=== PATIENT | male | born 1965 | race African-American/Black ===

== ENCOUNTER → 2016-12-28 | Outpatient (CLI) | payer BC ==
--- NOTE | 2016-12-28 11:48 | RADRPT ---
PROCEDURE: XR Knees. CLINICAL INDICATION: Bilateral knee pain. TECHNIQUE: Total of eight views. Weightbearing frontal, oblique, and lateral views of the both kn ees. Patellar views of both knees. COMPARISON: No prior study is available for comparison. FINDINGS: On the right side, there are is a screw in the distal femur and a screw in the proximal tibia relate d to the anterior cruciate ligament repair. There are degenerative changes with osteophytes arising from all 3 joint compartment margins. There is patellofemoral joint compartment narrowing. There is no deformity. On the left side, there is a kush in the femur with 2 locking screws distally in the femur. There ar e degenerative changes with osteophytes arising from all 3 joint compartment margins. There is no j oint space narrowing or deformity. The soft tissues are unremarkable. There is no lytic or blastic lesion. IMPRESSION: 1. On the right, previous ACL repair. Moderate degenerative changes. 2. On the left, previous open reduction internal fixation of the femur. Mild degenerative changes. RPTAT: QQ .Mikie Barton MD, Date Time Electronically viewed and signed by .Mikie Barton MD, on 12/28/2016 11:48 .R/
== END | disposition home or self-care (01) ==
LOC: HKI 08:53
PROVIDERS: ATTEND Orthopaedic Surgery
DX: M25.561 Pain in right knee (principal); M17.11 Unilateral primary osteoarthritis, right knee
CPT/HCPCS: 73564; Z7500; G0463

== ENCOUNTER → 2017-01-25 | Outpatient (CLI) | payer BC ==
--- NOTE | 2017-01-25 16:42 | RADRPT ---
PROCEDURE: Limited x-ray of both lower extremities. CLINICAL INDICATION: Bilateral leg pain. TECHNIQUE: Single frontal view of both lower extremities was obtained from the hips to the calves. COMPARISON: Bilateral knee radiographs dated 12/28/2016. FINDINGS: There are mild degenerative changes of the hips with osteophytes noted. There is a right knee anter ior cruciate ligament repair with 2 screws noted. There is a kush in the shaft of the left femur with 2 locking screws proximally and 2 locking screws distally. There is an old healed fracture of the mid to upper shaft of the left femur. There are moderate degenerative changes of both knees with os teophytes and joint space narrowing. IMPRESSION: 1. Prior right knee surgery and left femur surgery. 2. Mild degenerative changes of the hips. 3. Moderate degenerative changes of both knees. RPTAT: QQ .Mikie Barton MD, MD Date Time Electronically viewed and signed by .Mikie Barton MD, on 01/25/2017 16:42 .R/
== END | disposition home or self-care (01) ==
LOC: HKI 09:45
PROVIDERS: ATTEND Orthopaedic Surgery
DX: M25.561 Pain in right knee (principal); M17.11 Unilateral primary osteoarthritis, right knee
CPT/HCPCS: 77073; Z7500; G0463

== ENCOUNTER 2017-02-02 07:24 | Inpatient (IN) | payer BC ==
[~2017-02-02] VITALS: Ht 165.1 cm; Wt 71.0 kg
[2017-02-02] VITALS (24 sets, daily range): BP systolic 111–141; BP diastolic 72–100; PULSE 72–100; RESP 12–26; Ht 165.1 cm; Wt 71.0 kg
--- NOTE | 2017-02-02 06:54 | PREOPHP ---
DATE OF ADMISSION: 02/02/2017 A 51-year-old male will have surgery right knee osteoarthritis total knee arthropla sty on the right side. The patient is 51-year-old man in no acute distress to have a right total hi p arthroplasty. Total right knee arthroplasty with Dr. Patrick Dominguez. Surgery date is 02/02/2017. The patient is 51 years old. Vital signs: Height 66 inches, weight 160 pounds, BMI 25, pulse 82, blo od pressure 126/82, temperature 98.7, pulse 82, respirations 20. The patient is 51-year-old male in no acute distress. He will undergo right total knee arthroplasty. General appearance: Well-nourished and well-developed man in good health, no abuse, no neglect evide nce. Normocephalic. No lesions. Atraumatic. Eyes, pupils PERRL. Conjunctive normal. Sclerae cl ear. Vision normal. Ear canals are clear. TMs normal and intact. Hearing grossly normal. Nose p assages clear. Mucosa pink. No lesions. Teeth grossly appear grossly normal. No cavities. NECK: Normal. no masses, thyroid not enlarged. pupils equal and symmetric. CHEST: Lungs clear and symmetric. HEART: Normal. No organic murmur. Regular rhythm. EKG normal. IMPRESSION: Normal. No mass. Lungs are clear to auscultation bilaterally. ABDOMEN: Soft. No mass. Liver and spleen appear normal. GENITALIA: Grossly normal. EXAM: Normal. RECTAL EXAMINATION: Normal. Femoral pulse normal. EXTREMITIES: The patient had an old fracture, left radius fracture, nondisplaced last year about 2015. Upper extremities normal. Lower extremity both knee osteoarthritis, severe, right knee osteoarthritis. Left knee, old fracture of the left radius and healing well. Low back pain. He co mplained of back pain. SKIN: Appears normal and clear. No significant lesions. PSYCHIATRIC: Normal. No complaints of anxiety. No sensory deficits. Examination is grossly normal except for fracture of the left radius and the patient has right and l eft knee osteoarthritis. REVIEW OF SYSTEMS: Everything appeared to be normal except for left radius fracture, old. Osteoarth ritis. MEDICATION: The patient is on Soma 350 mg p.o. t.i.d. and hydrocodone 10/325 mg p.o. t.i.d. The patient is having surgery with Dr. Patrick Dominguez on 02/02/2017. DICTATED BY: MD SHERRI Oden MD DICTATED PRE-OPERATIVE HISTORY AND PHYSICAL FOR PATRICK DOMINGUEZ MD. Dictated By: PATRICK DOMINGUEZ MD EZ/NTS Conf#: [id number] DID#: [id number]
[~2017-02-02 07:24] MED LIST: LIDOCAINE 2% (SDV) 5 ML INJ ONE
[2017-02-02] MEDS ORDERED: CEFAZOLIN 2GM/50 ML (PMX) 50 ML X1 BEFORE INCISION IVPB ONE (08:00)
[2017-02-02] MEDS ORDERED: CELECOXIB 400 MG PO X1 DOSE PO ONE (08:00)
[2017-02-02] MEDS ORDERED: TRANEXAMIC ACID in SOD CHLORIDE 0.9% 100 ML ON CALL TO OR IV SCH (08:00)
[2017-02-02] MEDS ORDERED: BUPIVACAINE LIPOSOME/PF 266 MG/20 ML VIAL INFIL ONE (08:00)
[2017-02-02] MEDS ORDERED: PREGABALIN 300 MG PO X1 PO ONE (08:00)
[2017-02-02] MEDS ORDERED: PAIN COCKTAIL-CEFUROXIME IRR ONE ×7 (08:00)
[2017-02-02] MEDS ORDERED: traMADOL 50 MG TAB X 1 DOSE PO ONE (08:00)
[2017-02-02] MEDS ORDERED: oxyCODONE (CR) 10 MG TAB [oxyCONTIN] X1 DOSE PO ONE (08:00)
[2017-02-02] MEDS ORDERED: OXYC5CAP17 PO (08:03)
[2017-02-02] MEDS ORDERED: CARI350T29 PO (08:03)
[2017-02-02] MEDS ORDERED: GLYCOPYRROLATE 0.4 MG INJ ONE (09:06)
[2017-02-02] MEDS ORDERED: ONDANSETRON 4 MG INJ ONE (09:06)
[2017-02-02] MEDS ORDERED: FENTAnyl 50 MCG/ML VIAL ONE ×2 (09:06→11:15)
[2017-02-02] MEDS ORDERED: ROCURONIUM 50 MG INJ ONE (09:06)
[2017-02-02] MEDS ORDERED: DEXAMETHASONE 4 MG/ML 1 ML INJ ONE (09:06)
[2017-02-02] MEDS ORDERED: CEFAZOLIN 1 GM INJ ONE (09:06)
[2017-02-02] MEDS ORDERED: ETOMIDATE 20 MG INJ ONE (09:06)
[2017-02-02] MEDS ORDERED: NEOSTIGMINE 3 MG/3 ML SYRINGE ONE (09:06)
[2017-02-02] MEDS ORDERED: MIDAZOLAM 1 MG/ML 2 ML INJ ONE (09:06)
[2017-02-02] MEDS ORDERED: PROPOFOL 100 ML ONE (09:07)
[2017-02-02] MEDS ORDERED: VANCOMYCIN 1 GM INJ ONE (09:28)
[2017-02-02] MEDS ORDERED: POLYMYXIN B 500000 UNIT INJ ONE (09:28)
[2017-02-02] MEDS ORDERED: BACITRACIN 50000 UNITS INJ ONE (09:30)
--- NOTE | 2017-02-02 09:37 | HPN ---
Date/Time of Note Date/Time of Note DATE: 02/02/17 TIME: 09:36 Interval H&P Admission Note Pt. seen H&P reviewed: No system changes No change from H&P on 01/30/17 by BRAVO Mckeon MD February 02, 2017 09:37
[2017-02-02] MEDS ORDERED: TRANEXAMIC ACID in SOD CHLORIDE 0.9% 100 ML FOR INTRAOP IVPB SCH (10:00)
[2017-02-02] MEDS ORDERED: MIDAZOLAM 1 MG/ML 2 ML INJ IV PRN (11:00)
[2017-02-02] MEDS ORDERED: MEPERIDINE 25 MG INJ IV PRN (11:00)
[2017-02-02] MEDS ORDERED: EPHEDrine SULFATE 50 MG/5 ML SYG IV PRN (11:00)
[2017-02-02] MEDS ORDERED: ONDANSETRON 4 MG INJ IV PRN ×2 (11:00→13:00)
[2017-02-02] MEDS ORDERED: hydrALAzine 20 MG INJ IV PRN (11:00)
[2017-02-02] MEDS ORDERED: LABETALOL HCL 20MG INJ IV PRN (11:00)
[2017-02-02] MEDS ORDERED: EXPAREL NOTE (BUPIVICAINE LIPOSOMAL) XX SCH (11:00)
[2017-02-02] MEDS ORDERED: DIPHENHYDRAMINE 50 MG INJ IV PRN (11:00)
[2017-02-02] MEDS ORDERED: TRIMETHOBENZAMIDE 100 MG/ML VIAL IM PRN (11:00)
[2017-02-02] MEDS ORDERED: FENTAnyl 50 MCG/ML VIAL IV PRN ×3 (11:00)
[2017-02-02] MEDS ORDERED: HYDROmorphONE (0.2 MG/ML) 10ML SYG IV PRN ×3 (11:00)
[2017-02-02] MEDS: traMADol 50 MG TAB PO SCH ×3 (12:00→23:07)
--- NOTE | 2017-02-02 12:50 | OPR ---
Date/Time of Note Date/Time of Note DATE: 02/02/17 TIME: 12:48 Operative Report Free Text/Dictation Dictation # [id number] Procedure Date: February 02, 2017 Preoperative Diagnosis Right Knee OA Postoperative Diagnosis Same Operation Performed Right TKA Surgeon: BRAVO DOMINGUEZ MD care team assistant: SANTIAGO MCKINLEY PA-C Anesthesia: general, spinal Anesthesiologist: Gaudencio Courtney M.D. Tourniquet Time: 67 minutes Estimated Blood Loss: 50 - 100 ml's Specimens Bone and soft tissue Tubes/Drains Hemovac x 1 Complications: None Pt Condition Post Procedure: stable Disposition: PACU BRAVO DOMINGUEZ MD February 02, 2017 12:50
--- NOTE | 2017-02-02 12:52 | PN ---
Date/Time of Note Date/Time of Note DATE: 02/02/17 TIME: 12:50 Assessment/Plan Assessment/Plan Assessment/Plan Stable in PACU, s/p right TKA continue antibiotics -pain meds as needed -ASA/SCDs for DVT prophylaxis -OOB with PT -check AM labs -monitor drain -d/c kurtz in AM XR of the right knee shows good alignement with no fracture or dislocations identified Subjective 24 Hr Interval Summary Stable in PACU. Denies pain. Moving all extremities. Exam/Review of Systems Vital Signs Vitals Vital Signs Date Time Temp Pulse Resp B/P Pulse Ox O2 Delivery O2 Flow Rate FiO2 02/02/17 13:21 86 16 131/88 96 Room Air 02/02/17 12:39 98.0 Intake and Output 02/01/17 02/01/17 02/02/17 15:00 23:00 07:00 Intake Total 2600 ml Balance 2600 ml Exam Free Text/Dictation Hemovac: minimal Dressing dry Incision clean, dry, and intact without redness or drainage Thigh soft 5/ Quadriceps, Tibialis Anterior, EHL, Gastroc, Soleus, Peroneals Normal sensation Palpable DT/PT, CR <2 sec No distal edema Results Result Diagram: 02/02/17 1327 SANTIAGO MCKINLEY PA-C February 02, 2017 12:52
[2017-02-02] MEDS ORDERED: ASPIRIN (EC) 325 MG TAB PO ONE (13:00)
[2017-02-02] MEDS ORDERED: MAGNESIUM HYDROXIDE 30ML CUP PO PRN (13:00)
[2017-02-02] MEDS ORDERED: DIPHENHYDRAMINE 25 MG CAP PO PRN (13:00)
[2017-02-02] MEDS ORDERED: NA PHOSPHATE/BIPHOS 133 ML ENEMA PR PRN (13:00)
[2017-02-02] MEDS ORDERED: BISACODYL 10 MG SUPP PR PRN (13:00)
[2017-02-02] MEDS ORDERED: NACL 0.9% 3 ML SYG IV SCH (13:00)
--- NOTE | 2017-02-02 13:04 | OPR ---
DATE OF OPERATION: 02/02/2017 PREOPERATIVE DIAGNOSIS: Right knee osteoarthritis. POSTOPERATIVE DIAGNOSIS: Right knee osteoarthritis. OPERATION PERFORMED: Right total knee arthroplasty. SURGEON: Bravo Baeza MD JAVA DEVELOPER ARCHITECT: AROLDO Lopez COMPONENTS USED: DePuy Attune size 6 femoral component, size 6 tibial baseplate, 5 mm polyethylene insert, 38 patellar button. ANESTHESIA: Spinal plus general endotracheal intubation plus periarticular injection. ANESTHESIOLOGIST: Dr. Courtney. TOURNIQUET TIME: 67 minutes. ESTIMATED BLOOD LOSS: 50 mL. INTRAVENOUS FLUIDS: Two liters of crystalloid. SPECIMENS: Bone and soft tissue. DRAINS: Hemovac x1. COMPLICATIONS: None. INDICATIONS: The patient is a 51-year-old gentleman who has had progressive worsening pain in the r ight knee. He had a previous ACL reconstruction. He has gone on to develop severe osteoarthritis. He has tried a multitude of nonsurgical means of treatment to address his pain including activity m odifications, pain medications, intra-articular injections and ambulatory assist devices. Despite t hese measures, he has had worsening pain and I felt he would benefit from a total knee arthroplasty. The risks, benefits, and alternatives of the procedure were explained in detail to the patient. I e xplained the risks of the surgery to include but not be limited to, bleeding and possible need for b lood transfusion; infection; pain; stiffness; neurovascular injury with possible numbness, weakness, and/or paralysis anywhere from the knee down to the toes; fracture; instability; dislocation; wear and/or loosening of the prosthesis and possible need for future revision; blood clots; pulmonary emb olism; and anesthetic complications such as heart attack, stroke, GI bleed, pneumonia, and/or . Ample time was allowed for the patient to ask questions, all of which were addressed and answered. The patient understood the risks involved and wished to proceed. Informed consent was signed prior to the procedure. PROCEDURE: The patient's right knee was initialed with a marking pen in the preoperative area to id entify the correct operative site. The patient was brought to the operating room and transferred fr the [facility] to the operating table where a spinal anesthetic was administered. The patie nt was then anesthetized and intubated. A Coffman catheter was placed. A timeout was performed to co nfirm that the right leg was the correct operative site. The patient was given 2 g of Ancef within one hour prior to the procedure. A tourniquet was placed on the operative proximal thigh. The oper ative knee and lower extremity were prepped and draped in the usual sterile fashion. The operative lower extremity was elevated and exsanguinated with an Esmarch tourniquet. The proximal thigh tourn iquet was inflated to 300 mmHg. The knee was flexed. A midline incision was made and carried down through the subcutaneous tissue a nd fat with sharp dissection. Limited medial and lateral flaps were raised. A median parapatellar arthrotomy approach was performed. Synovial fluid was normal in color and consistency. The patella was everted and the knee flexed. There were severe tricompartmental osteoarthritic changes noted. A medial release was performed at the joint line to the midcoronal plane. The ACL and PCL and remnan ts of the menisci were excised. The stepped drill was used to open up the femoral canal which was i rrigated and sucked dry. The intramedullary guide kush was passed up the femur, and the distal cutti ng block was pinned into place for a 6 degree valgus cut, taking 10 mm of bone off distally. The osc illating saw was used to make the cut. The tibia was subluxed anteriorly. The tibial cutoff jig was placed over the center of the talus di stally and over the junction of the medial and middle third of the tibial tubercle proximally. The g uide was pinned into place and the oscillating saw was used to make the cut. The tibia was sized. The extension gap was checked and accommodated a 5 mm spacer block with the knee in full extension. There was no varus or valgus instability. At this point, the femur was sized with the posterior referencing guide. Two holes were drilled in 3 degrees of external rotation. The two holes were in line with the transepicondylar axis, perpendi cular to Strafford's line, and in line with the tibial cutoff jig brought up with the knee flexed 90 degrees and tensed with 2 lamina spreaders, suggesting the femoral rotation was correct. The four- in-one cutting block was pinned into place. The anterior and posterior cuts and chamfer cuts were m carmelita with the oscillating saw. The flexion gap was checked and accommodated the 5 mm spacer block at 90 degrees. There was no varus or valgus instability, suggesting the flexion and extension gaps we re now equal. The central box was cut out on the femur. The tibia was drilled and punched in proper rotation. Tri al components were placed into position with a trial insert. The patella was cut from 25 mm down to 15 mm and sized. Three holes were drilled and the trial button placed in position. With all the t rials now in place, the knee was taken through range of motion and came to full extension as evidenc ed by the fact that with the foot on my abdomen and axial loading, there was no tendency for the kne e to flex. The knee was able to be flexed to 125 degrees with good patellar tracking with no latera l tilt or subluxation. At this point, I was satisfied with the overall range of motion, stability, and patellar tracking. The trials were removed. The real components were opened. Two bags of cement were mixed, one with and one without premixed antibiotic. The knee was irrigated with antibiotic saline and sucked dry. Once the cement was in a doughy stage, the real components were cemented into place. The knee was held in full extension, and the patellar component was held with a patellar clamp. All excess cemen t was removed with curettes. As the cement was hardening, the synovial/capsular layer was infiltrat ed with a mixture of 150 mg of 0.5% Bupivacaine, 8 mg of Duramorph, 300 mcg of epinephrine, 30 mg of Toradol, 100 mcg of clonidine, 750 mg of cefuroxime and 86 mL of normal saline, followed by an inje ction of 266 mg of liposomal Bupivacaine. A Hemovac drain was placed in the deep portion of the wound and brought out the anterolateral thigh. Once the cement was completely hardened, the trial liner was removed, and the real insert was open ed. The tourniquet was let down, and there was good hemostasis. The knee was then irrigated with a mixture of betadine/saline and then antibiotic saline with pulsatile lavage. The real insert was impacted into the tibia and reduced onto to the femur. The arthrotomy was closed with a few interrupted #1 Ethibond in a auaamj-mw-[id number] fashion, and then closed in a watertight fashion with a running #2 Stratafix suture. Knee flexion was checked against gravity and came to 125 degrees. The subcutaneous layer was irrigated and closed with 2-0 Statafix , and then 3-0 Vicryl and then nick on the skin. The wound was covered with an occlusive dressin g, and secured with cast padding and a bias dressing. The drain was secured with 3-0 nylon. The sponge and needle counts were correct at the end of the case. The patient was then awakened, ex tubated, and taken to the recovery room in stable condition. Dictated By: BRAVO METZ/NTS Conf#: [id number] DID#: [id number]
[2017-02-02] MEDS: CEFAZOLIN 2 GM/50 ML (PMX) 50 ML IVPB SCH ×2 (13:22→21:10)
[2017-02-02 13:41] LABS: HEMATOCRIT 46.8 % (42.0-52.0); HEMOGLOBIN 15.4 g/dl (14.0-18.0)
[2017-02-02] MEDS: LACTATED RINGER'S 1,000 ML IV SCH ×2 (13:47→21:09)
--- NOTE | 2017-02-02 13:54 | RADRPT ---
PROCEDURE: XR right knee. CLINICAL INDICATION: Knee pain. TECHNIQUE: AP and lateral views are available for review. COMPARISON: No comparison available FINDINGS: There is a total knee replacement. There is no evidence of loosening of the prosthesis. There is no evidence of hardware failure. The osseous structures are normal in mineralization, architecture and alignment No acute fracture or dislocation is seen.No osseous lesions are identified. There are pos toperative soft tissue changes. A drain is in place. There are midline vertical skin nick . IMPRESSION: Unremarkable postoperative total knee replacement. Postoperative soft tissue changes RPTAT: HGDB .Stephane Philip MD, Date Time Electronically viewed and signed by .Stephane Philip MD, on 02/02/2017 13:54 .B/
[2017-02-02 13:57] LABS: POTASSIUM 4.7 mmol/L (3.5-5.1)
[2017-02-02 14:00] LABS: CALCIUM 8.6 mg/dl (8.4-10.2); CREATININE 0.83 mg/dl (0.61-1.24)
[2017-02-02 14:30] LABS: CHOL/HDL RATIO 2.5 RATIO
--- NOTE | 2017-02-02 14:52 | CONS ---
DATE OF ADMISSION: 02/02/2017 DATE OF CONSULTATION: 02/02/2017 REASON FOR CONSULTATION: Medical management. REFERRING PHYSICIAN: Dr. Patrick Baeza, Orthopedic Surgery. ACTIVE DIRECTORY ARCHITECT: Dr. Priyanka Shea, Internal Medicine. HISTORY OF PRESENT ILLNESS: This is a 51-year-old -[place] male who denies any significant past medical history other than chronic back pain and right knee osteoarthritis, who was electively brought to the OR and the patient underwent a right total knee arthroplasty with no immediate surgical complications. The patient was seen in the post-anesthesia care unit during the physical examination. The patient's vital signs were stable. PAST MEDICAL HISTORY: Chronic back pain. PAST SURGICAL HISTORY: Left femur surgery, left shoulder surgery, right knee prior surgery, Lasik surgery. HOME MEDICATIONS: 1. Soma 350 mg p.o. t.i.d. 2. Hydrocortisone 10/325 p.o. t.i.d. p.r.n. pain. ALLERGIES: IBUPROFEN. SOCIAL HISTORY: The patient lives at home with his girlfriend. The patient is a prior smoker. However, he quit smoking 1 month ago. Drinks socially. Uses medical marijuana. The patient is currently not working. FAMILY HISTORY: Positive for diabetes. Negative for any coronary artery disease or hypertension. REVIEW OF SYSTEMS: CONSTITUTIONAL: Denies any recent weight loss or night sweats. HEENT: Denies any history of seizures, migraine headaches, blurred vision. CARDIAC: Denies any chest pain, palpitations. Denies any history of coronary artery disease. RESPIRATORY: Denies any chronic cough or dyspnea. GASTROINTESTINAL: Denies any hematochezia, melena, hematemesis, irregular bowel or bladder habits. GENITOURINARY: Denies any dysuria, hematuria, frequency, urgency. MUSCULOSKELETAL: Chronic back pain, chronic right knee pain. NEUROLOGIC: Denies any history of strokes, TIA, seizures. ENDOCRINE: Denies any history of diabetes. Denies any heat or cold intolerance. PHYSICAL EXAMINATION: VITAL SIGNS: Temperature 98.0, pulse rate 82, respiratory rate 21, blood pressure 125/82, oxygen saturation 96% on room air. GENERAL: This is a well-built, well-nourished -[place] male lying in bed in no apparent distress. HEENT: Head normocephalic and atraumatic. Eyes: Anicteric sclerae. Conjunctivae clear. ENT: Nasal septum is midline. Oral mucosa is dry. NECK: Supple. No JVD noticed. PULMONARY: Bilaterally clear to auscultation. No adventitious breath sounds. No use of accessory muscles of respiration. CARDIOVASCULAR: Regular rate and rhythm. S1, S2 heard. No murmurs. ABDOMEN: Soft, nontender, nondistended. Bowel sounds positive in all 4 quadrants. GENITOURINARY: The patient has a Coffman catheter in place. EXTREMITIES: Right knee surgical dressing with wound VAC in place. Pulses in the right dorsalis pedis palpable. Left lower extremity, no edema. Peripheral pulses are palpable. NEUROLOGIC: The patient is awake, alert and oriented. Cranial nerves are grossly intact. LABORATORY AND DIAGNOSTIC DATA: Hemoglobin 15.4, hematocrit 46.8. Sodium 138, potassium 4.7, chloride 105, carbon dioxide 23, anion gap 15, BUN 12, creatinine 0.8, glucose 128, calcium 8.63. IMPRESSION: A 51-year-old male who was brought in for elective right knee arthroplasty because of right knee osteoarthritis, who underwent an uncomplicated right knee arthroplasty and will be admitted here for further treatment and evaluation. ASSESSMENT AND PLAN: 1. Right knee osteoarthritis. Status post total right knee arthroplasty. Continue pain control. Anticoagulation as per orthopedic surgery. Physical therapy evaluation as per orthopedic surgery. 2. Chronic back pain. The patient will be continued on p.r.n. analgesics. Baseline labs including thyroid panel, hemoglobin A1c, and a fasting lipid panel will be obtained. Additional diagnostic and therapeutic orders will be added as clinically indicated. The case and management of this patient was fully discussed with Dr. Shea. Thank you, Dr. Baeza, for allowing us to participate in this patient's care. We will continue to follow the patient along with you. ERNESTINE SHEA MD, AM/MICHELET Conf#: [id number] DID#: [id number] MTDD
[2017-02-02 14:59] LABS: ADD UMIC YES; URINE BILIRUBIN (Dip) NEGATIVE (NEGATIVE); URINE BLOOD (Dip) TRACE (NEGATIVE); URINE COLOR LT. YELLOW (YELLOW); URINE GLUCOSE (Dip) NEGATIVE (NEGATIVE); URINE KETONES (Dip) NEGATIVE (NEGATIVE); URINE LEUKOCYTE ESTERASE (Dip) NEGATIVE (NEGATIVE); URINE NITRITE (Dip) NEGATIVE (NEGATIVE); URINE TOTAL PROTEIN (Dip) NEGATIVE (NEGATIVE); URINE UROBILINOGEN (Dip) 0.2 E.U./dL (0.1-1.0)
[2017-02-02 15:00] LABS: THYROID STIMULATING HORMONE 1.25 MIU/L (0.465-4.680)
[2017-02-02] MEDS: TRANEXAMIC ACID 710 MG in SOD CHLORIDE 0.9% 100 ML IVPB ONE ×2 (15:42→18:14)
[2017-02-02 15:50] LABS: SQUAMOUS EPITHELIAL CELL,UR RARE; URINE RBCS 0-2 /HPF (0)
[2017-02-02] MEDS: HYDROCODONE/APAP (10/325) TAB PO PRN ×2 (15:50→21:11)
[2017-02-02] MEDS ORDERED: TRANEXAMIC ACID 710 MG in SOD CHLORIDE 0.9% 100 ML IVPB ONE (16:00)
[2017-02-02] MEDS: PANTOPRAZOLE (EC) 40 MG TAB PO SCH (17:53)
[2017-02-02] MEDS: PREGABALIN 50 MG CAP PO SCH (21:11)
[2017-02-02] MEDS: DOCUSATE SODIUM 100 MG CAP PO SCH (21:11)
[2017-02-03] MEDS: HYDROCODONE/APAP (10/325) TAB PO PRN ×2 (02:04→08:26)
[2017-02-03] MEDS: CEFAZOLIN 2 GM/50 ML (PMX) 50 ML IVPB SCH (04:40)
[2017-02-03] MEDS: LACTATED RINGER'S 1,000 ML IV SCH ×3 (04:41→23:41)
[2017-02-03 05:21] LABS: HEMATOCRIT 39.2 % (42.0-52.0); HEMOGLOBIN 13.2 g/dl (14.0-18.0)
[2017-02-03 05:34] LABS: POTASSIUM 4.2 mmol/L (3.5-5.1)
[2017-02-03 05:36] LABS: CREATININE 0.75 mg/dl (0.61-1.24)
[2017-02-03 05:37] LABS: CALCIUM 8.7 mg/dl (8.4-10.2)
[2017-02-03] MEDS: PANTOPRAZOLE (EC) 40 MG TAB PO SCH ×2 (06:23→17:24)
[2017-02-03] MEDS: traMADol 50 MG TAB PO SCH ×4 (06:23→23:40)
[2017-02-03 07:25] VITALS: BP 152/82; RESP 18
[2017-02-03] MEDS: PREGABALIN 50 MG CAP PO SCH ×2 (08:26→20:30)
[2017-02-03] MEDS: DOCUSATE SODIUM 100 MG CAP PO SCH ×2 (08:26→20:27)
[2017-02-03] MEDS: CELECOXIB 200 MG CAP PO SCH (08:26)
[2017-02-03] MEDS: ASPIRIN (EC) 325 MG TAB PO SCH ×2 (08:27→20:27)
--- NOTE | 2017-02-03 08:52 | PN ---
Date/Time of Note Date/Time of Note DATE: 02/03/17 TIME: 08:50 Assessment/Plan Lines/Catheters IV Catheter Type (from Nrsg): Peripheral IV Coffman in Place (from Nrsg): Yes Assessment/Plan Assessment/Plan Stable POD #1, s/p right TKA -d/c ancef -pain meds as needed -ASA/SCDs for DVT prophylaxis -OOB with PT -drain removed -check AM labs -d/c planning. Will plan to go home upon discharge Subjective 24 Hr Interval Summary No acute overnight events. Denies any pain and wants to go home today. Did not start PT yet. VSS, afebrile. Will plan to go home upon discharge. Exam/Review of Systems Vital Signs Vitals Vital Signs Date Time Temp Pulse Resp B/P Pulse Ox O2 Delivery O2 Flow Rate FiO2 02/03/17 07:25 98.6 79 18 152/82 99 02/02/17 19:39 Room Air Intake and Output 02/02/17 02/02/17 02/03/17 14:59 22:59 06:59 Intake Total 100 ml 820 ml 2525 ml Output Total 495 ml 1400 ml 1900 ml Balance -395 ml -580 ml 625 ml Exam Free Text/Dictation Hemovac: 445cc Dressing dry Incision clean, dry, and intact without redness or drainage Thigh soft 5/5 Quadriceps, Tibialis Anterior, EHL, Gastroc, Soleus, Peroneals Normal sensation Palpable DT/PT, CR <2 sec No distal edema Results Result Diagram: 02/03/17 0450 02/03/17 0420 SANTIAGO MCKINLEY PA-C February 03, 2017 08:52
[2017-02-03] MEDS: HYDROmorphONE 1 MG/ML SYG IV PRN ×4 (09:23→20:26)
--- NOTE | 2017-02-03 11:06 | PN ---
Date/Time of Note Date/Time of Note DATE: 02/03/17 TIME: 11:03 Assessment/Plan VTE Prophylaxis VTE Prophylaxis Intervention: other Lines/Catheters IV Catheter Type (from Nrs): Peripheral IV Urinary Cath still in place: Yes Reason Cath still needed: other (indicate) Assessment/Plan Chief Complaint/Hosp Course 1. Right knee osteoarthritis. Status post total right knee arthroplasty. Continue pain control. Anticoagulation as per orthopedic surgery. Physical therapy evaluation as per orthopedic surgery. 2. Chronic back pain. The patient will be continued on p.r.n. analgesics. 3. Fluids, electrolytes, and nutrition. Regular diet. 4. DVT prophylaxis. As per orthopedic surgery. 5. Gastrointestinal prophylaxis. Histamine 2 receptor blockers. Will continue to follow the patient along with you. Case discussed with Dr. Shea. Problems: Subjective 24 Hr Interval Summary Free Text/Dictation Vital signs stable. Right knee pain well controlled. Exam/Review of Systems Vital Signs Vitals Vital Signs Date Time Temp Pulse Resp B/P Pulse Ox O2 Delivery O2 Flow Rate FiO2 02/03/17 07:25 98.6 79 18 152/82 99 02/02/17 19:39 Room Air Intake and Output 02/02/17 02/02/17 02/03/17 15:00 23:00 07:00 Intake Total 100 ml 820 ml 2525 ml Output Total 495 ml 1400 ml 1900 ml Balance -395 ml -580 ml 625 ml Exam GENERAL: This is a well-built, well-nourished -[place] male lying in bed in no apparent distress. HEENT: Head normocephalic and atraumatic. Eyes: Anicteric sclerae. Conjunctivae clear. ENT: Nasal septum is midline. Oral mucosa is dry. NECK: Supple. No JVD noticed. PULMONARY: Bilaterally clear to auscultation. No adventitious breath sounds. No use of accessory muscles of respiration. CARDIOVASCULAR: Regular rate and rhythm. S1, S2 heard. No murmurs. ABDOMEN: Soft, nontender, nondistended. Bowel sounds positive in all 4 quadrants. GENITOURINARY: Deferred. EXTREMITIES: Right knee surgical dressing. Pulses in the right dorsalis pedis palpable. Left lower extremity, no edema. Peripheral pulses are palpable. NEUROLOGIC: The patient is awake, alert and oriented. Cranial nerves are grossly intact. Results Result Diagram: 02/03/170 02/03/17419 Results 24 hrs Laboratory Tests Test 02/02/17 12:44 02/02/17 13:27 02/03/17 04:20 02/03/17 04:50 Urine Color LT. YELLOW Urine Clarity CLEAR Urine pH 6.0 Urine Specific [place] <=1.005 L Urine Ketones NEGATIVE Urine Nitrite NEGATIVE Urine Bilirubin NEGATIVE Urine Urobilinogen 0.2 E.U./dL Urine Leukocyte Esterase NEGATIVE Urine Microscopic RBC 0-2 Urine Microscopic WBC 0-2 Urine Squamous Epithelial Cells RARE Urine Hemoglobin TRACE Urine Glucose NEGATIVE Urine Total Protein NEGATIVE Hemoglobin 15.4 13.2 L Hematocrit 46.8 39.2 L Sodium Level 138 138 Potassium Level 4.7 4.2 Chloride Level 105 106 Carbon Dioxide Level 23 25 Anion Gap 15 11 Blood Urea Nitrogen 12 10 Creatinine 0.83 0.75 Glucose Level 128 110 Hemoglobin A1c 5.6 Calcium Level 8.6 8.7 Triglycerides Level 71 Cholesterol Level 198 LDL Cholesterol, Calculated 105 HDL Cholesterol 79 H Cholesterol/HDL Ratio 2.5 Thyroid Stimulating Hormone (TSH) 1.250 Free Thyroxine 1.30 Medications Medications Current Medications Lactated Ringer's (Lr) 1,000 ml @ 100 mls/hr Q10H IV ; Start 02/02/17 at 08:00 Miscellaneous Information 1 ea 1 ea NOTE XX ; Start 02/02/17 at 11:00; Stop at 10:59 Lactated Ringer's (Lr) 1,000 ml @ 125 mls/hr Q8H IV Last administered on 04:41; Admin Dose 125 MLS/HR; Start 02/02/17 at 12:41 Celecoxib (Celebrex) 200 mg DAILY PO Last administered on 02/03/17 08:26; Admin Dose 200 MG; Start 02/03/17 at 09:00 Tramadol HCl (Ultram) 50 mg Q6 PO Last administered on 02/03/17 06:23; Admin Dose 50 MG; Start 02/02/17 at 12:00; Stop 02/05/17 at 11:59 Hydromorphone HCl (Dilaudid) 1 mg Q3H PRN IV PAIN LEVEL 8-10 Last administered on 02/03/17 09:23; Admin Dose 1 MG; Start 02/02/17 at 13:00 Ondansetron HCl (Zofran Inj) 4 mg Q6H PRN IV NAUSEA AND/OR VOMITING; Start at 13:00 Bisacodyl (Dulcolax Supp) 10 mg Q12H PRN [place] CONSTIPATION; Start 02/02/17 at 13: 00 Magnesium Hydroxide (Milk Of Mag) 30 ml BID PRN PO CONSTIPATION; Start at 13:00 Sodium Biphosphate/ Sodium Phosphate (Fleet Enema) 133 ml DAILY PRN [place] CONSTIPATION; Start 02/02/17 at 13:00 Docusate Sodium (Colace) 100 mg BID PO Last administered on 02/03/17 08:26; Admin Dose 100 MG; Start 02/02/17 at 21:00 Diphenhydramine HCl (Benadryl) 25 mg Q6H PRN PO PRURITUS; Start 02/02/17 at 13: 00 Aspirin (Ecotrin) 325 mg BID PO Last administered on 02/03/17 08:27; Admin Dose 325 MG; Start 02/03/17 at 09:00 Pantoprazole (Protonix Tab) 40 mg BID@06,18 PO Last administered on 02/03/17 06:23; Admin Dose 40 MG; Start 02/02/17 at 18:00 Pregabalin (Lyrica) 50 mg BID PO Last administered on 02/03/17 08:26; Admin Dose 50 MG; Start 02/02/17 at 21:00 Acetaminophen/ Hydrocodone Bitart (Hooks (10/325)) 1 tab Q4H PRN PO PAIN Last administered on 02/03/17 08:26; Admin Dose 1 TAB; Start 02/02/17 at 13:00 ERNESTINE TIPTON NP February 03, 2017 11:06
[2017-02-03 20:19] VITALS: BP 147/88; RESP 19
[2017-02-03] MEDS: FAMOTIDINE 20 MG TAB PO SCH (20:27)
[2017-02-03 23:45] VITALS: BP 127/67; RESP 18
[2017-02-04 05:43] LABS: HEMATOCRIT 36.1 % (42.0-52.0); HEMOGLOBIN 11.9 g/dl (14.0-18.0)
[2017-02-04 06:04] LABS: CREATININE 0.78 mg/dl (0.61-1.24)
[2017-02-04 06:05] LABS: CALCIUM 8.3 mg/dl (8.4-10.2)
[2017-02-04] MEDS: traMADol 50 MG TAB PO SCH (06:29)
[2017-02-04] MEDS: PANTOPRAZOLE (EC) 40 MG TAB PO SCH (06:30)
[2017-02-04 08:12] VITALS: BP 119/75; PULSE 76; RESP 18
[2017-02-04 08:15] VITALS: BP 119/75; RESP 18
[2017-02-04] MEDS: DOCUSATE SODIUM 100 MG CAP PO SCH (08:54)
[2017-02-04] MEDS: PREGABALIN 50 MG CAP PO SCH (08:54)
[2017-02-04] MEDS: FAMOTIDINE 20 MG TAB PO SCH (08:55)
[2017-02-04] MEDS: ASPIRIN (EC) 325 MG TAB PO SCH (08:55)
[2017-02-04] MEDS: CELECOXIB 200 MG CAP PO SCH (08:55)
--- NOTE | 2017-02-04 09:56 | PDOCDIS ---
Discharge Instructions DIAGNOSIS Discharge Diagnosis: s/p right TKA CONDITION Patient Condition: Good HOME CARE INSTRUCTIONS: Diet Instructions: Regular ACTIVITY: Activity Restrictions: Slowly Increase Activity Rest between Activity Avoid heavy lifting Do not operate Machinery Do not operate Power Tool Avoid Heavy Housework Keep Limb Elevated Bathing Restrictions: Shower FOLLOW UP/APPOINTMENTS Appointments follow up in the office on 02/12/17 OTHER ORDERS: Other Orders: S/P TKA Physical Therapy: Three times per week at home x 2 weeks Daily in Rehab/SNF WB STATUS: WBAT 1. Strengthening exercises for both upper and un-operated lower extremities. 2. Gait training with front wheeled walker 3. Active range of motion exercises to operative knee. 4. When not working on knee range of motion exercises, distal towel roll under operative ankle/distal calf to promote full extension. 5. DO NOT PUT ANYTHING BEHIND OPERATIVE KNEE!!! 6. Quadriceps and hamstring strengthening. 7. May switch to cane in contra lateral hand 6 weeks after surgery. 8. Physical Therapy can open case if nursing is not available. 9. Use Ice Machine as instructed from date of surgery while at rest 3X/day. 10. Patient requires mobile SCDs to reduce risk of developing DVT following TKA. Patient will use the mobile SCDs for 30 days postoperatively. Bathing assistance by home health aide twice weekly if Medicare patient. Occupational Therapy: Evaluation for assistive devices and ADL training. Wound Care: Keep incision dry & covered with Tegaderm until first visit with Dr. Baeza Anticoagulation Orders: Enteric Coated Aspirin 325 mg po bid x 6 weeks from date of surgery Follow-up:Call for an appointment with Dr. Baeza in 1 week after discharged from hospital at DME Orders: CYNTHIA, 3-in-1 Commode, Polar ice machine, Mobile SCDs SANTIAGO MCKINLEY PA-C February 04, 2017 09:56
[2017-02-04] MEDS ORDERED: GABA300C PO (09:58)
[2017-02-04] MEDS ORDERED: PANT40TA4 PO (09:58)
[2017-02-04] MEDS ORDERED: Hydrocodone/Apap (10/325) PO (09:58)
[2017-02-04] MEDS ORDERED: ASPI325T32 PO (09:58)
[2017-02-04] MEDS ORDERED: TRAM50TA2 PO (09:58)
[2017-02-04] MEDS: LACTATED RINGER'S 1,000 ML IV SCH (10:00)
--- NOTE | 2017-02-05 08:47 | DS ---
DATE OF ADMISSION: 02/02/2017 DATE OF DISCHARGE: 02/04/2017 CONDITION UPON DISCHARGE: Stable. ADMITTING DIAGNOSIS: Right knee osteoarthritis. DISCHARGE DIAGNOSIS: Status post right total knee arthroplasty. PROCEDURE PERFORMED: Right total knee arthroplasty. HOSPITAL COURSE: This is a 51-year-old male who was seen in the clinic initially complaining of rig ht knee pain. He had previously underwent a right knee ACL reconstruction and had secondarily devel oped advanced osteoarthritis of the right knee. X-rays were obtained, and it was thought that point he would benefit from a right total knee arthroplasty. On 02/02/2017, the patient was admitted and taken to the operating room where he underwent a right total knee arthroplasty. There were no intr aoperative complications. The patient tolerated the procedure well. He was taken to the recovery r oom in stable condition. The pain was well controlled with oral pain medication. He was started on aspirin and SCDs for DVT prophylaxis. He remained hemodynamically stable and neurovascularly intac t throughout his hospital stay. He began physical therapy on postoperative day 1 and continued to m gilmar good progress. He was ultimately deemed stable for discharge on postoperative day 2. Prior to discharge, the incision was inspected and noted to be clean, dry, and intact. Dressing changes were done prior to patient going home. LABORATORY ANALYSIS: Hemoglobin 11.9, hematocrit 36.1. Chemistry panel was within normal limits. DISCHARGE MEDICATIONS: 1. Seale 10/325 mg. 2. Tramadol 50 mg. 3. Neurontin 300 mg. 4. Protonix 40 mg. 5. Aspirin 325 mg. 6. Additionally, the patient is to resume all of his normal home medications. DISCHARGE INSTRUCTIONS: The patient will be discharged home in stable condition. He is to resume a normal diet. ACTIVITY: He is weightbearing as tolerated on the right lower extremity. He will begin physical th erapy with home health. He will be discharged home with the medications noted above and is to resum e all his normal home medications. The patient is to call the office or go to the emergency room fo r any concerns including increased redness, swelling, drainage, fever or any concerns regarding the operation or site of incision. FOLLOWUP: The patient is to follow up in the office on 02/12/2017. Dictated By: SANTIAGO KHAN/MICHELET Conf#: [id number] [facility]#: [id number]
== END 2017-02-04 11:10 | disposition home health service (06) | DRG 470 ==
LOC: REC 07:24 → MS1 14:07
PROVIDERS: ADMIT Orthopaedic Surgery; ATTEND Orthopaedic Surgery
PROC: 0SRC0J9 Replacement of Right Knee Joint with Synthetic Substitute, Cemented, Open Approach (ICD-10-PCS; principal; 2017-02-02 10:00)
DX: M17.11 Unilateral primary osteoarthritis, right knee (principal); M54.5 Low back pain; Z87.891 Personal history of nicotine dependence; Z79.82 Long term (current) use of aspirin
CPT/HCPCS: 73560; 80048; 80061; 81001; 81003; 83036; 84439; 84443; 85014; 85018; 86850; 86900; 86901; 86920; 87081; 87086; 88300; 88304; 88311; 97110; 97116; 97163; 97530; C1776; C9290; J0171; J0690; J0697; J0735; J1100; J1170; J1885; J2250; J2274; J2405; J2710; J3010; J3370; J7120

== ENCOUNTER → 2017-02-12 | Outpatient (CLI) | payer BC ==
[~2017-02-12] MED LIST changes: +ASPI325T32 PO; +GABA300C PO; +Hydrocodone/Apap (10/325) PO; -LIDOCAINE 2% (SDV) 5 ML INJ ONE; +PANT40TA4 PO; +TRAM50TA2 PO
--- NOTE | 2017-02-12 12:15 | HKNOTE ---
DATE OF SERVICE: 02/12/2017 INTERVAL HISTORY: The patient presents today for his first postoperative evaluation. He is 10 days status post right total knee arthroplasty. He is doing well overall. He is complaining of some mild pain to his right knee. He is taking the pain medicine prescribed by us and by his primary care doctor. He denies any fevers or chills. He is taking aspirin twice daily for DVT prophylaxis. He has been evaluated by the RN at home; however, has not begun home health PT at this point yet. He presents today for evaluation. PHYSICAL EXAMINATION: Today, he is alert and oriented x4, and in no acute distress. He is ambulating with a front-wheeled walker. Exam of the incision demonstrates it to be clean, dry and intact. Nick are in place. Range of motion is 0 to 90 degrees. Varus and valgus forces are stable. Homans sign is negative. Compartments are soft. He is neurovascularly intact distally. IMAGING: X-rays of the right knee were obtained today and reviewed by me. They demonstrate good anatomic alignment with no fracture or dislocation identified. ASSESSMENT: Ten days status post right total knee arthroplasty. PLAN: The nick were removed today and Steri-Strips were applied. He will continue physical therapy with home health and transition to an outpatient physical therapy program. He should continue aspirin 325 mg twice daily for DVT prophylaxis. We will see him back in 4 weeks for a repeat evaluation. The patient is to call the office in the meantime if there are any concerns. Dictated By: SANTIAGO KHAN/MIHCELET Conf#: [id number] DID#: [id number] MTDD
--- NOTE | 2017-02-12 12:38 | RADRPT ---
PROCEDURE: XR right knee. CLINICAL INDICATION: Knee pain. TECHNIQUE: AP and lateral weightbearing views are available for review. COMPARISON: 02/02/2017 FINDINGS: There is a total knee replacement. There is no evidence of loosening of the prosthesis. There is no evidence of hardware failure. The osseous structures are normal in mineralization, architecture and alignment No acute fracture or dislocation is seen.No osseous lesions are identified. The soft tiss ues are unremarkable . IMPRESSION: Unremarkable total knee replacement. RPTAT: HGDB .Stephane Philip MD, MD Date Time Electronically viewed and signed by .Stephane Philip MD, on 02/12/2017 12:38 .B/
== END | disposition home or self-care (01) ==
LOC: HKI 10:59
PROVIDERS: ATTEND Orthopaedic Surgery
DX: Z47.1 Aftercare following joint replacement surgery (principal); Z96.651 Presence of right artificial knee joint

== ENCOUNTER → 2017-03-11 | Outpatient (CLI) | payer BC ==
--- NOTE | 2017-03-11 10:58 | HKNOTE ---
DATE OF SERVICE: 03/11/2017 INTERVAL HISTORY: The patient presents today for a followup evaluation on his right knee. He is no w about 5 weeks status post right total knee arthroplasty. He is progressing overall and is now amb ulating with a cane. He denies any fevers or chills. He has not started outpatient physical therap y yet, however. He has been doing home health PT but has not gone to an outpatient facility. He st ates his pain is improving overall, although he is having some mild swelling to the right knee. He presents today for evaluation. PHYSICAL EXAMINATION: On exam today, he is alert and oriented x4 and in no acute distress. He has a mild effusion. Range of motion is 0 to 95 degrees. Varus and valgus forces are stable. There is no erythema, warmth, pus or drainage noted. The incision is clean, dry and well healed at this poi nt. Compartments are soft. Homans sign is negative. He is neurovascularly intact distally. ASSESSMENT: Five weeks status post right total knee arthroplasty. PLAN: The patient is to discontinue home health physical therapy and begin an outpatient physical t herapy program. A prescription was written today. The focus of PT should be on range of motion as well as decreasing the swelling. He does have a slight amount of fluid in his right knee so I advis ed him to modify his activity and apply ice as much as possible. Additionally, the patient states h maurice has dentures and does not need to go to the dentist and did not require antibiotics today prior to dental work. We will see him back in 6 weeks for repeat evaluation. Dictated By: SANTIAGO KENDRICK for BRAVO KHAN/MICHELET Conf#: [id number] DID#: [id number]
== END | disposition home or self-care (01) ==
LOC: HKI 15:00
PROVIDERS: ATTEND Orthopaedic Surgery
DX: Z47.1 Aftercare following joint replacement surgery (principal); Z96.651 Presence of right artificial knee joint; M25.561 Pain in right knee

== ENCOUNTER → 2017-05-07 | Outpatient (CLI) | payer BC ==
[~2017-05-07] MED LIST changes: +CARI350T29 PO; +OXYC5CAP17 PO
--- NOTE | 2017-05-07 13:09 | RADRPT ---
PROCEDURE: CR Right Knee CLINICAL INDICATION: Pain TECHNIQUE: A total, a lateral, and a sunrise view were submitted. COMPARISON: 02/12/2017 FINDINGS: Osseous Structures: The total right knee replacement components again appear well seated without af[place] dence of infection or loosening. The osseous elements are otherwise intact. Join Spaces: The joint spaces are well maintained. A small joint effusion is again evident.. Soft Tissues: The soft tissues appear unremarkable. IMPRESSION: 1. Well seated total right hip replacement. 2. The osseous elements are otherwise intact. 3. There is again a small joint effusion. Physician Gina Date Time Electronically viewed and signed by Physician Gina on 05/07/2017 13:08 /
== END | disposition home or self-care (01) ==
LOC: HKI 09:10
PROVIDERS: ATTEND Orthopaedic Surgery
DX: Z09 Encounter for follow-up examination after completed treatment for conditions other than malignant neoplasm (principal); Z96.651 Presence of right artificial knee joint

== ENCOUNTER → 2017-07-08 | Outpatient (CLI) | payer BC ==
[~2017-07-08] MED LIST changes: -CARI350T29 PO; -OXYC5CAP17 PO
--- NOTE | 2017-07-09 03:31 | HKNOTE ---
DATE OF SERVICE: 07/08/2017 CHIEF COMPLAINT: Followup right total knee arthroplasty. HISTORY OF PRESENT ILLNESS: This is a 52-year-old male who is now 5 months status post right total knee arthroplasty by Dr. Patrick Baeza. He has been doing well. He uses a cane for ambulation. He d oes not take any medications for pain. He denies any instability. He has no complaints. RIGHT KNEE EXAMINATION: Incisions healed, no drainage, -8 to 110 degrees range of motion stable to varus valgus stress and negative anterior and posterior drawer. MOTOR STRENGTH: 5/5 of hamstrings, tibialis anterior, gastrocsoleus and peroneals. X-RAYS RIGHT KNEE: Three views of the right knee demonstrate that the implant is in acceptable alig nment. There are no fractures or dislocations. Patella is tracking centrally. IMPRESSION: A 52-year-old male status post right total knee arthroplasty. PLAN: He can continue to be weightbearing as tolerated. He does not require any pain medications. He will follow up at 1-year followup. Dictated By: RGAYSON BYRNE/MICHELET Conf#: [id number] DID#: [id number]
== END | disposition home or self-care (01) ==
LOC: HKI 14:34
PROVIDERS: ATTEND Orthopaedic Surgery Adult Reconstructive Orthopaedic Surgery
DX: Z09 Encounter for follow-up examination after completed treatment for conditions other than malignant neoplasm (principal); Z96.651 Presence of right artificial knee joint
CPT/HCPCS: G0463